=== PATIENT | male | born 1960 | race Hispanic/Latino ===

== ENCOUNTER 2023-12-22 13:04 | Emergency (ER) | payer MEDICAID, SELFPAY ==
--- NOTE | ~2023-12-22 | CT_ITS ---
EXAMINATION: CT abdomen pelvis w con DATE: 12/22/2023 13:52 INDICATION: Left lower quadrant abdominal pain. TECHNIQUE: Computed tomography (CT) of the abdomen and pelvis was performed with 100 mL Omnipaque 350 intravenous contrast. Automated exposure control and iterative reconstruction technique were employe d. The dose-length product was 368.42 mGy-cm. COMPARISON: None. FINDINGS: The visualized portions of the lung bases demonstrate mild atelectasis and mild chronic judah g disease. No pleural effusion. The heart size is normal. No pericardial effusion. The liver, gallbla dder, spleen, pancreas, adrenal glands, and kidneys are normal. There is a right inguinal hernia cont aining fat. There is fat stranding around an epiploic appendage of sigmoid colon, consistent with epi ploic appendagitis. There are no dilated loops of bowel. The appendix is normal. There are no patholo gically enlarged lymph nodes. There is no free intraperitoneal fluid. There is mild lumbar spondylosi s. There is a chronic compression fracture of L4. IMPRESSION: 1. Epiploic appendagitis of the sigmoid colon. Reviewed, dictated and finalized at [facility]
[2023-12-22 13:09] VITALS: BP 120/75; PULSE 59; RESP 14; TEMP 36.3; O2SAT 99
--- NOTE | 2023-12-22 13:09 | ED.ABDPAIN ---
HPI - Abdominal Pain General Chief Complaint: Abdominal Pain Stated Complaint: abd pain Time Seen by Provider: 12/22/23 13:09 History of Present Illness HPI narrative: 63 years old male presents with left lower quadrant pain started yesterday noon, worse with eating, better with urination. No history of abdominal surgery, history of GERD, does not take medicine at home, does not smoke or drink or use drugs. Came to the emergency room by private car with his significant other. He denies any fever, chills, nausea, vomiting, diarrhea, constipation or urinary symptoms Related Data Allergies Allergy/AdvReac Type Severity Reaction Status Date / Time No Known Allergies Allergy Unverified 01/15/13 14:47 Review of Systems Review of Systems: All systems reviewed & are unremarkable except as noted in HPI and below Exam Narrative: General appearance: Well-developed, well-nourished Skin: Normal color Head: Normocephalic, nontraumatic Eyes: Clear conjunctiva ENT: Oropharynx normal, ears normal, nose normal Neck: Supple, nontender Chest and respiratory: Airway patent, no respiratory distress, no accessory muscle use Heart: Regular rate/rhythm Abdomen: Soft, slight diffuse tenderness , no organomegaly, quiet bowel sounds Vascular: Normal peripheral pulses, normal capillary refill. Musculoskeletal: Normal range of motion, nontender back Neurologic: Alert and oriented ?3, HEAD LINEMAN is normal as tested, no gross motor deficit Course Vital Signs Vital signs: Vital Signs Temperature 36.3 C L 12/22/23 13:09 Pulse Rate 59 L 12/22/23 13:09 Respiratory Rate 14 12/22/23 13:09 Blood Pressure 120/75 12/22/23 13:09 Pulse Oximetry 99 12/22/23 13:09 Temperature 36.3 C L 12/22/23 13:09 Pulse Rate 54 L 12/22/23 15:13 Respiratory Rate 13 12/22/23 15:13 Blood Pressure 134/74 12/22/23 15:13 Pulse Oximetry 99 12/22/23 15:13 MDM - Abdominal Pain MDM Narrative Medical decision making narrative: Patient came to the hospital with lower abdominal pain, Physical examination showed slight tenderness at the lower abdomen mainly left lower quadrant, no guarding or rebound Differential diagnosis diverticulitis, constipation, urinary tract infection, musculoskeletal. Workup today showed normal blood workup, clean urine, CT abdomen and pelvis with IV contrast showed epiploic appendagitis sigmoid colon. In the ED patient received 1 L of normal saline, 0.5 mg of Dilaudid IV, 4 mg of Zofran IV with remarkable improvement. My plan to discharge patient on ibuprofen 600 every 6 hours as needed and follow up with faculty head in 5 days if there is no improvement. Medical Records Attestation: I reviewed the patient's medical records. Lab Data Attestation: I reviewed the patient's lab results. 12/22/23 13:22 12/22/23 13:22 Labs: Lab Results 12/22/23 12/22/23 Range/Units 13:15 13:22 WBC 7.7 (4.5-10.0) K/mm3 RBC 4.62 (4.6-6.20) M/mm3 Hgb 15.0 (14.0-18.0) g/dL Hct 43.0 (42.0-52.0) % MCV 93.1 (80-100) fl MCH 32.5 (26-34) pg MCHC 34.9 (32-36) g/dl RDW 12.0 (11.5-14.5) % Plt Count 210 (150-375) k/mm3 MPV 10.3 (7.4-10.4) fl Immature Gran % (Auto) 0.1 (0-0.5) % Neut % (Auto) 56.4 (45.5-73.1) % Lymph % (Auto) 31.0 (18.3-44.2) % Lawrence % (Auto) 10.0 H (2.6-8.5) % Eos % (Auto) 2.1 (0-4.4) % Baso % (Auto) 0.4 (0.2-1.2) % Lymph # (Auto) 2.39 (0.9-3.2) K/mm3 Lawrence # (Auto) 0.8 H (0.1-0.6) K/mm3 Eos # (Auto) 0.2 (0-0.3) K/mm3 Baso # (Auto) 0.0 (0.0-0.1) K/mm3 Abs Immat Gran (auto) 0.01 (0.00-0.031) K/mm3 Absolute Neuts (auto)
[2023-12-22 13:23] LABS: Appearance Urine Clear (Clear); Bilirubin Urine Negative (Negative); Blood Urine Negative (Negative); Color Urine Yellow (Yellow); Glucose Urine UA Negative (Negative); Ketones Urine Negative (Negative); Leukocyte Esterase Ur Negative LEU/UL (Negative); Nitrate Urine Negative (Negative); Protein Urine Negative (Negative); Specific Grav Ur 1.023 (1.001-1.035); Urobilinogen Urine 0.2 mg/dL (<2.0)
[2023-12-22 13:24] LABS: Add Urine Microscopic? NO
[2023-12-22 13:29] LABS: Basophils Percent Auto 0.4 % (0.2-1.2); Eosinophils Absolute Auto 0.2 K/mm3 (0-0.3); Eosinophils Percent Auto 2.1 % (0-4.4); Immature Granulocyte Absolute 0.01 K/mm3 (0.00-0.031); Immature Granulocyte Percent A 0.1 % (0-0.5); Lymphocytes Absolute Auto 2.39 K/mm3 (0.9-3.2); Mean Corpuscular HGB Conc 34.9 g/dl (32-36); Mean Corpuscular Hemoglobin 32.5 pg (26-34); Mean Corpuscular Volume 93.1 fl (80-100); Mean Platelet Volume 10.3 fl (7.4-10.4); Monocytes Absolute Auto 0.8 K/mm3 (0.1-0.6); Neutrophils Absolute Auto 4.3 K/mm3 (1.3-6.7); Neutrophils Percent Auto 56.4 % (45.5-73.1); Platelet Count Result 210 k/mm3 (150-375); Red Blood Count 4.62 M/mm3 (4.6-6.20); White Blood Count 7.7 K/mm3 (4.5-10.0)
[2023-12-22 13:30] VITALS: BP 110/73; PULSE 72; RESP 19; O2SAT 98
[2023-12-22] MEDS: SODIUM CHLORIDE 0.9% IV 1,000 ML 999 ML IV CONT (13:35)
[2023-12-22] MEDS: HYDROmorphone HCL INJ (*CRX) 1 MG/ML SYR 0.5 MG IV PUSH (13:35)
[2023-12-22] MEDS: ONDANSETRON INJ 4 MG/2 ML VIAL IV PUSH (13:36)
[2023-12-22 13:38] LABS: Alanine Aminotransferase 33 U/L (6-50); Albumin Level 4.3 g/dL (3.5-5.1); Alkaline Phosphatase 59 U/L (38-126); Anion Gap 5 mmol/L (8-16); Aspartate Amino Transferase 30 U/L (17-59); Bilirubin,Total 0.8 mg/dL (0.2-1.3); Blood Urea Nitrogen 18 mg/dL (9-20); Carbon Dioxide 27 mmol/L (22-30); Chloride 104 mmol/L (98-107); Estimated CRCL calculation 73 ml/min; Estimated Glomerular Filt Rate > 60; Glucose 105 mg/dL (65-110); Lipase 170 U/L (23-300); Potassium 3.5 mmol/L (3.4-5.0); Sodium 136 mmol/L (137-145)
[2023-12-22 13:55] VITALS: PULSE 68; RESP 13; O2SAT 100
[2023-12-22 14:01] VITALS: PULSE 65; RESP 15; O2SAT 100
[2023-12-22 14:15] VITALS: BP 129/76; PULSE 57; RESP 14; O2SAT 97
[2023-12-22 15:13] VITALS: BP 134/74; PULSE 54; RESP 13; O2SAT 99
== END 2023-12-22 15:15 | disposition home or self-care (01) ==
PROVIDERS: Emergency Provider Emergency Medicine; PCP Family Medicine
DX: K63.89 Other specified diseases of intestine (principal)
CPT/HCPCS: 36415; 74177; 80053; 81003; 83690; 85025; 96361; 96374; 96375; 99284; J1170; J2405; J7030; Q9967